=== PATIENT | male | born 1960 | race Caucasian/White ===

== ENCOUNTER 2021-09-15 08:09 | Emergency (ER) | payer OTHER ==
[~2021-09-15] VITALS: Ht 172.7 cm; Wt 79.4 kg
[2021-09-15] MEDS ORDERED: AVALIDE 300-121 EACH (08:19)
[2021-09-15] MEDS ORDERED: PREVACID30 MG (08:19)
== END 2021-09-15 09:31 | disposition home or self-care (01) ==
LOC: ER 08:09
DX: F41.9 Anxiety disorder, unspecified (principal); I10 Essential (primary) hypertension